=== PATIENT | male | born 1970 | race Two or more races ===

== ENCOUNTER 2025-03-28 07:20 | Day surgery (SDC) | payer MEDICAID, SELFPAY ==
--- NOTE | 2025-03-27 12:16 | EKG_ITS ---
[facility] Test Date: 2025-03-27 Pat Name: CHULA EDOUARD Department: Room: - Gender: Male [employer]: [employer] : 1970 Requested By: Ramin Small Order Number: [id number] Reading MD: Ramin Small Measurements Intervals [place] Rate: 91 P: 24 SC: 156 QRS: 29 QRSD: 92 T: 31 QT: 357 QTc: 440 Interpretive Statements SINUS RHYTHM NONSPECIFIC ST & T-WAVE ABNORMALITY No previous ECG available for comparison /[id number]/[email or web address]/[id number].pdf
[2025-03-27 12:24] VITALS: BMI 41.8
[2025-03-27 13:31] LABS: Basophils # (Auto) 0.1 Thou/mm3 (0.0-0.2); Basophils % (Auto) 1 % (0-2.5); Eosinophils # (Auto) 0.3 Thou/mm3 (0.0-0.5); Eosinophils % (Auto) 3 % (0-10); Hematocrit 39.4 % (41.0-53.0); Hemoglobin 12.3 g/dL (13.5-16.0); Immature Granulocytes Auto 0.05 Thou/mm3 (0.00-0.00); Lymphocytes # (Auto) 2.5 Thou/mm3 (1.0-4.8); Lymphocytes % (Auto) 33 % (10-50); Mean Corpuscular HGB Conc 31.2 g/dl (31.0-37.0); Mean Corpuscular Hemoglobin 27.3 pg (25.0-35.0); Mean Corpuscular Volume 88 fL (80-100); Monocytes # (Auto) 0.6 Thou/mm3 (0.0-0.8); Monocytes % (Auto) 7 % (0-12); Neutrophils # (Auto) 4.3 Thou/mm3 (1.8-7.7); Neutrophils % (Auto) 56 % (37-80); Nucleated Red Blood Cell # 0.00 Thou/mm3 (0.00-0.00); Nucleated Red Blood Cell % 0 /100 WBC (0); Platelet Count 310 Thou/mm3 (140-440); RDW Standard Deviation 46.7 fL (35.1-43.9); Red Blood Count 4.50 Miln/mm3 (4.50-5.90); White Blood Count 7.6 Thou/mm3 (3.8-10.6)
[2025-03-27 13:39] LABS: INR 1.0 (0.9-1.3); Partial Thromboplastin Time 26.9 Seconds (22.0-36.0); Prothrombin Time 11.0 Seconds (9.0-12.2)
[2025-03-27 13:43] LABS: Alanine Aminotransferase 21 U/L (10-49); Albumin, Serum 3.8 gm/dL (3.5-5.0); Albumin/Globulin Ratio 1.0 (1.2-2.2); Alkaline Phosphatase 131 U/L (46-116); Anion Gap 8 (7-16); Aspartate Amino Transferase 20 U/L (0-34); BUN/Creatinine Ratio 10 Ratio (12-20); Bilirubin,Total 0.4 mg/dL (0.3-1.2); Blood Urea Nitrogen 9 mg/dL (9-23); Calcium 8.6 mg/dL (8.3-10.6); Calcium (Corrected) 8.8 mg/dL (8.5-10.1); Carbon Dioxide 28.6 mMol/L (20.0-31.0); Chloride 101 mMol/L (98-107); Creatinine (Component) 0.9 mg/dL (0.6-1.3); Estimated Creatinine Clearance 130.7 mL/min (>60); Globulin 3.9 gm/dL (2.3-3.5); Glucose 151 mg/dL (74-106); Osmolality,Calculated 277 (275-295); Potassium 3.8 mMol/L (3.4-5.1); Sodium 138 mMol/L (136-145); Total Protein 7.7 gm/dL (5.7-8.2); eGFR > 60 See Note
[2025-03-28] VITALS (12 sets, daily range): BP systolic 92–156; BP diastolic 79–109; PULSE 82–92; RESP 12–24; TEMP 36.1–36.6; O2SAT 93–96; BMI 41.8
--- NOTE | 2025-03-28 08:41 | SUR.PREOP ---
Patient expressed gratitude for prayer before their procedure.
--- NOTE | 2025-03-28 10:09 | PD.SUROPNT ---
Date of Procedure 03/28/25 Pre Op Diagnosis 1. Left rotator cuff tear 2 left shoulder impingement syndrome Post Op Diagnosis Same Procedure 1. Excision lateral end of the clavicle 2. Excision coracoacromial ligament 3 acromioplasty 4. Repair of rotator cuff 5. Manipulation under anesthesia Findings Refer dictation Procedure Description The patient was given general endotracheal anesthesia. Shoulder block was also given. Once satisfactory anesthesia was achieved patient was put in about 45?? sitting position with sandbag underneath the left shoulder blade. The part was thoroughly prepped and draped. A skin incision was made at the AC joint extending proximally towards the neck for a half inches and distally towards the arm for about couple of inches. Deeper dissection was carried out. Bleeding vessels were electrocoagulated as and when encountered. The soft tissue was reflected. Following that AC joint was exposed and AC joint was exposed. The deltoid muscle was reflected from the anterior and lateral aspect of the acromial process. The acromial process showed 3 mm long anterior osteophytes and 2 mm lateral osteophytes. Following that a periosteal elevator was placed underneath the lateral end of the clavicle and lateral 3-4 mm was excised. The coracoacromial ligament was removed. The anterior 2 mm and lateral 2 mm of the acromial process along with osteophytes were removed. With the help of curved osteotome the undersurface of the Acromial processes was chiseled out. That made more room between the superior surface of the head of the humerus and undersurface of the acromial process. Following that the rotator cuff was inspected. It revealed an oval tear, however most of the fibers were attached to the greater tuberosity. Wound was irrigated with antibiotic solution every 4-5 minutes. The left shoulder was manipulated at this time. Full range of abduction and forward flexion was achieved. The rotator cuff tear was repaired with 2-0 Vicryl. 2 drill holes were made on the acromial process and deltoid muscle was stitched back to it. Some reinforcement sutures were placed. The subcutaneous tissue was then closed with the help of 2-0 Vicryl and 3-0 Vicryl in layers. The skin was closed with subcuticular Monocryl After cleaning the wound with hydrogel proximal solution Prineo tape and and sterile dressing was applied. Patient was taken to the recovery room in good condition. Estimated blood loss 20 mL. Prognosis in this case is good. Anesthesia GETA and other Pathology / specimen None Estimated Blood Loss 20 Surgeon Ramin Mcdaniels MD Surgical Staff Operation Date: 03/28/25 09:15 Case Staff Anesthesiologist: Kurtis Polo RN First Assistant: Valery Esparza
--- NOTE | 2025-03-28 10:41 | ESHP_ITS ---
RE: CHULA EDOUARD : 1970 DATE OF ADMISSION: 03/28/2025 The patient came to my office on 03/27/2025 for detailed preop history and physical examination. HISTORY OF PRESENTING COMPLAINT: The patient presented to me earlier with history of pain and severe restriction of the left shoulder movement. The patient has stated that this is going on for a long period of time, but the last few months are extremely painful. Quality of life and activities of daily living is affected. The patient graded intensity of pain to be 7-8/10. Unable to sleep. Unable to raise left arm above the shoulder level. PAST MEDICAL HISTORY: The patient has a history of diabetes mellitus. No history of high blood pressure, asthma, seizure, chest pain, myocardial infarction, or eating disorder. DRUG HISTORY: The patient is takin. Glipizide. 2. Naprosyn. 3. [place]. 4. Omeprazole. ALLERGIES: NIL KNOWN. FAMILY HISTORY AND SOCIAL HISTORY: The patient denies smoking, drinking, not working. PHYSICAL EXAMINATION: GENERAL: Normal built person. VITAL SIGNS: Pulse 88 per minute. Blood pressure is 136/84. NECK: Soft, supple. No mass felt. Trachea is centrally placed. CARDIOVASCULAR SYSTEM: First and second heart sounds normal. No murmur heard. RESPIRATORY SYSTEM: Bilateral vesicular breath sounds. CHEST: Clear. ABDOMEN: Soft. No masses felt. Bowel sounds present. EXTREMITIES: Left shoulder examination revealed 2+ tenderness at AC joint and also at subacromial and subdeltoid space. Active range of motion 0 to 80 degrees of abduction and 0 to 90 degrees of forward flexion. No further range of motion is possible. Internal rotation is severely restricted and painful. The patient has weak fist and gamemaster. MRI scan of the left shoulder rotator cuff revealed full-thickness tear of the supraspinatus and partial thickness of the infraspinatus. 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 Since the patient is symptomatic and affecting quality of life along with the rotator cuff tear, therefore, repair of the rotator cuff was discussed and advised. Risks with anesthesia was explained and that includes, but not limited to reaction to anesthetic agents, cardiac arrest, and rarely, it might be fatal. Risks with outpatient includes infection and if that happens, the patient will need further surgical procedure. Other risks include delayed healing, wound dehiscence, etc. No guarantee is given regarding outcome of the procedure and relief of symptoms. Detailed discussion took place. Accordingly, surgery is booked for 03/28/2025. Indeed, physical therapy is very important component for the successful outcome of the procedure and full cooperation is very helpful. Accordingly surgery booked for 03/28/2025. Appropriate lab was done. DT: 10:17:07 TT: 10:40:00 Ref: [id number] - TID: [id number]
[2025-03-28] MEDS: HYDROmorphone INJ 2 MG/ML VIAL 0.4 MG IVP (10:54)
--- NOTE | 2025-03-28 10:57 | SUR.PHASEI ---
1025: Pt received in [facility] via gurney. Report from Julianne CALLEJAS and Dr. Dewitt. Pt obtunded. Oral airway in place. Resp even, unlabored. VS stable. Dressing to left shoulder dry, clean, intact. Bilateral radial pusles strong, regular. 1036: Oral airway dc'd. Resp even, unlabored. 1054: Pt groggy but awake with c/o pain to right shoulder. Rates pain level 8/10. Resp even, unlabored. VS stable. Pain medication given per order.
--- NOTE | 2025-03-28 11:32 | SUR.PHASEII ---
1105: Pt resting with no further complaints of pain. VS stable. Resp even, unlabored.
--- NOTE | 2025-03-28 13:31 | SUR.PHASEII ---
1110: Dressing shows moderate amount of bleeding. OR maintenance of way superintendent provided clean dressings. Surgical site showed no further active bleeding. Clean dressing applied. 1135: Pt remains very sedated from pain medication given at 1054. Pt unable to remain awake. Resp even, unlabored. VS stable. No further c/o pain. 1155: Pt more awake, alert. VS stable. Dressing has remained dry, clean, intact. Pt sitting up tolerating po fluids with no difficulty swallowing and no n/v. 1217: Pt fully awake, oriented x3. VS stable. Dressing remains dry, clean, intact. Pt dressed and assisted to transport chair. Ambulation steady. Pt and friend stated understanding of discharge instructions. Pt discharged from [facility] in stable condition.
== END 2025-03-28 12:17 | disposition home or self-care (01) ==
PROVIDERS: Anesthesiology; Referring Provider Orthopaedic Surgery; Visit Provider Orthopaedic Surgery
PROC: (CPT 23412; principal; 2025-03-28 09:00)
DX: M75.102 Unspecified rotator cuff tear or rupture of left shoulder, not specified as traumatic (principal); M75.42 Impingement syndrome of left shoulder; Z01.810 Encounter for preprocedural cardiovascular examination; M25.712 Osteophyte, left shoulder; E11.9 Type 2 diabetes mellitus without complications
CPT/HCPCS: 23412; 23120; 36415; 80048; 80053; 85025; 85610; 85730; 93005; A4217; A4649; J0131; J1171; J1580; J2250; J2704; J2795; J3010; J3490